=== PATIENT | male | born 1975 | race Caucasian/White ===

== ENCOUNTER 2016-09-25 21:43 | Emergency (ER) | payer MEDICAID ==
[~2016-09-25] VITALS: Ht 167.6 cm; Wt 102.1 kg
[2016-09-25 21:45] VITALS: BP 130/87
--- NOTE | 2016-09-26 02:01 | NUR ---
41 Y/O M W/C/O LOWER BACK PAIN X 1 WK. PT STATES HAS CHRONIC BACK PAIN AND PAIN HAS GOTTEN WORSE X 1 WK AGO. NO S/S OF DISTRESS NOTED AT THE MOMENT, ER MADE AWARE.
--- NOTE | 2016-09-26 02:01 | NUR ---
AMBULATED TO ER BED 4
[2016-09-26] MEDS ORDERED: KETOROLAC 30 MG/ML VIAL IM ONE (02:10)
[2016-09-26 02:42] VITALS: BP 114/82
--- NOTE | 2016-09-26 02:42 | NUR ---
Patient discharged with v/s stable. Written and verbal after care instructions given and explained. Patient alert, oriented and verbalized understanding of instructions. Ambulatory with steady gait. All questions addressed prior to discharge. ID band removed. Patient advised to follow up with PMD OR RETURN TO ER IF PAIN BECOMES WORSE. Rx of MEDROL DOSEPAK given. Patient educated on indication of medication including possible reaction and side effects. Opportunity to ask questions provided and answered.
== END 2016-09-26 02:42 | disposition home or self-care (01) ==
LOC: MED 21:43
PROC: 3E033GC Introduction of Other Therapeutic Substance into Peripheral Vein, Percutaneous Approach (ICD-10-PCS; principal; 2016-09-25)
DX: M54.5 Low back pain (principal); E11.9 Type 2 diabetes mellitus without complications
CPT/HCPCS: 96372; 99283; J1885